=== PATIENT | male | born 1960 | race Caucasian/White ===

== ENCOUNTER 2018-03-02 10:52 | Day surgery (SDC) | payer BC ==
[~2018-03-02] VITALS: Ht 170.2 cm; Wt 92.0 kg
[2018-03-02] VITALS (196 sets, daily range): BP systolic 81–132; BP diastolic 48–97; PULSE 45–88; TEMP 97.6–98; O2SAT 76–100
[2018-03-02 12:13] LABS: HEMATOCRIT 43.2 % (42.0-52.0); HEMOGLOBIN 15.2 g/dl (13.5-18.0); MEAN CELL VOLUME 93 fl (80.0-100.0); MEAN CORPUSCULAR HEMOGLOBIN 33 pg (27.0-31.0); MEAN CORPUSCULAR HGB CONC 35 g/dl (33.0-37.0); MEAN PLATELET VOLUME 9.6 fl (7.4-10.4); PLATELET COUNT 172 K/mm3 (130-400); RED BLOOD COUNT 4.65 M/mm3 (4.20-5.60); REDCELL DISTRIBUTION WIDTH-CV 12.7 % (11.5-14.5)
[2018-03-02 12:16] LABS: PROTHROMBIN TIME 11.5 SECONDS (9.7-12.8)
[2018-03-02 12:24] LABS: CALCIUM 9.2 mg/dL (8.4-10.2); CREATININE, serum 0.81 mg/dL (0.66-1.25); POTASSIUM 4.4 mmol/L (3.4-5.0)
[2018-03-02] MEDS ORDERED: ASPIRIN E.C. 8181 MG PO (12:28)
[2018-03-02] MEDS ORDERED: VITAMIN D 1001000 IU (12:30)
[2018-03-02] MEDS ORDERED: THE MEDICINE S200 M2 PO (12:31)
[2018-03-02] MEDS ORDERED: ZETIA 10MG TAB10 MG PO (12:32)
[2018-03-02] MEDS ORDERED: LYRICA 75MG CAP75 MG PO (12:33)
[2018-03-02] MEDS ORDERED: TOPROL XL 25MG25 MG PO (12:33)
[2018-03-02] MEDS ORDERED: PRINZIDE 25 MG-1 TAB PO (12:33)
[2018-03-02] MEDS ORDERED: LIVALO4 MG PO (12:34)
[2018-03-03] VITALS (380 sets, daily range): BP systolic 103–121; BP diastolic 72–80; PULSE 48–51; TEMP 97.6–97.9; O2SAT 84–100
[2018-03-03 05:57] LABS: BASO % 0.6 % (0.0-2.0); EOS # 0.1 (0.0-0.7); EOS % 2.2 % (0-4.0); GRAN # 3.8 (1.4-6.5); GRAN % 58.5 % (42.2-75.2); HEMATOCRIT 41.3 % (42.0-52.0); HEMOGLOBIN 14.5 g/dl (13.5-18.0); LYMPH # 1.6 (1.2-3.4); LYMPH % 24.7 % (20.0-51.0); MEAN CELL VOLUME 94 fl (80.0-100.0); MEAN CORPUSCULAR HEMOGLOBIN 33 pg (27.0-31.0); MEAN CORPUSCULAR HGB CONC 35 g/dl (33.0-37.0); MEAN PLATELET VOLUME 9.7 fl (7.4-10.4); MONO # 0.9 (0.1-0.6); MONO % 13.4 % (1.7-9.3); PLATELET COUNT 176 K/mm3 (130-400); RED BLOOD COUNT 4.41 M/mm3 (4.20-5.60); REDCELL DISTRIBUTION WIDTH-CV 12.6 % (11.5-14.5)
[2018-03-03 06:22] LABS: CALCIUM 9.1 mg/dL (8.4-10.2); CREATININE, serum 0.9 mg/dL (0.66-1.25); POTASSIUM 4.5 mmol/L (3.4-5.0)
[2018-03-03] MEDS ORDERED: IMDUR 30MG30 MG/TAB PO (09:24)
[2018-03-03] MEDS ORDERED: BRILINTA90 MG PO (09:24)
[2018-03-03] MEDS ORDERED: LIPITOR 80MG80 MG PO (09:24)
[2018-03-03] MEDS ORDERED: PRINZIDE 12.5 M1 TAB PO (09:25)
== END 2018-03-03 11:55 | disposition home or self-care (01) ==
LOC: COL.CAR 10:52 → ICU 15:12 → COL.CAR 03-03 11:55
PROVIDERS: Internal Medicine Cardiovascular Disease; Nurse Practitioner
DX: I25.10 Atherosclerotic heart disease of native coronary artery without angina pectoris (principal); R06.09 Other forms of dyspnea; R07.9 Chest pain, unspecified; I10 Essential (primary) hypertension; E78.5 Hyperlipidemia, unspecified; G47.30 Sleep apnea, unspecified; R20.2 Paresthesia of skin; G89.29 Other chronic pain; M54.9 Dorsalgia, unspecified; I34.0 Nonrheumatic mitral (valve) insufficiency; Z79.82 Long term (current) use of aspirin; Z79.899 Other long term (current) drug therapy
CPT/HCPCS: OP; C9600; J0583; J2250; J3010; Q9967

== ENCOUNTER 2018-05-07 13:54 | Outpatient (RCR) | payer BC ==
[~2018-05-07 13:54] MED LIST: AMOXICILLIN 8751 TAB PO; ASPIRIN E.C. 8181 MG PO; BRILINTA90 MG PO; IMDUR 30MG30 MG/TAB PO; LIPITOR 80MG80 MG PO; LIVALO4 MG PO; LYRICA 75MG CAP75 MG PO; PRINZIDE 12.5 M1 TAB PO; PRINZIDE 25 MG-1 TAB PO; THE MEDICINE S200 M2 PO; TOPROL XL 25MG25 MG PO; VITAMIN D 1001000 IU; ZETIA 10MG TAB10 MG PO
== END 2018-06-24 | disposition home or self-care (01) ==
LOC: COL.CR
DX: Z48.812 Encounter for surgical aftercare following surgery on the circulatory system (principal); Z95.5 Presence of coronary angioplasty implant and graft

== ENCOUNTER 2018-08-05 17:00 | Outpatient (RCR) | payer BC ==
[2018-05-14 15:31] VITALS: BP 110/70; PULSE 80; TEMP 99.1
== END 2018-08-09 | disposition home or self-care (01) ==
LOC: WSPT
DX: G62.9 Polyneuropathy, unspecified (principal); Z98.1 Arthrodesis status; Z98.890 Other specified postprocedural states

== ENCOUNTER 2018-08-12 10:02 | Outpatient (RCR) | payer BC | END 2018-11-10 | disposition home or self-care (01) | LOC: WSPT | DX: G62.9 Polyneuropathy, unspecified (principal); Z98.1 Arthrodesis status ==

== ENCOUNTER → 2018-11-22 | Outpatient (CLI) | payer BC | LOC: COL.RAD 07:30 | DX: M75.122 Complete rotator cuff tear or rupture of left shoulder, not specified as traumatic (principal); M19.012 Primary osteoarthritis, left shoulder; Z96.9 Presence of functional implant, unspecified ==

== ENCOUNTER → 2019-08-15 | Outpatient (CLI) | payer BC | LOC: COL.RAD 11:58 | DX: M25.511 Pain in right shoulder (principal) ==

== ENCOUNTER 2020-02-06 10:02 | Day surgery (SDC) | payer BC ==
[~2020-02-06] VITALS: Ht 170.2 cm; Wt 90.0 kg
[~2020-02-06 10:02] MED LIST changes: +ASPIRIN 81M81 MG/TA2 PO; +PERCOCET 325 MG1 TA2 PO; +VITAMIN D250 MCG PO; +[UNRECOGNIZED DRUG - CODE] PO
[2020-02-06] MEDS ORDERED: ROXICODONE 55 MG/TAB PO (10:44)
[2020-02-06 11:02] VITALS: BP 115/66; PULSE 46; TEMP 97.8
[2020-02-06 12:36] VITALS: BP 98/66; PULSE 50; TEMP 97.4
--- NOTE | 2020-02-06 12:36 | NUR ---
Patient arrives back to [facility] alert, denies pain or nausea. Patient monitor applied, vitals stable. Patient has a large dressing on left forearm that is clean/dry/intact. Patient has no sensation in his left arm, capillary refill <2 seconds. Sling applied per surgical nurse.
[2020-02-06 12:45] VITALS: BP 100/72; PULSE 45
[2020-02-06 13:00] VITALS: BP 104/64; PULSE 41
--- NOTE | 2020-02-06 13:00 | NUR ---
Patient tolerates water and muffin without any nausea, denies pain, vitals stable.
[2020-02-06 13:15] VITALS: BP 97/56; PULSE 49
--- NOTE | 2020-02-06 13:15 | NUR ---
Oxygen therapy turned off at this time.
--- NOTE | 2020-02-06 13:25 | NUR ---
Patient up to restroom at this time.
--- NOTE | 2020-02-06 13:30 | NUR ---
Patient reports that he was able to urinate without any difficulties. Patient denies pain, and reports he is ready to go home.
--- NOTE | 2020-02-06 13:40 | NUR ---
Dismissal instructions gone over with patient and patient's spouse. Both verbalize understanding and all questions answered.
--- NOTE | 2020-02-06 13:50 | NUR ---
Patient discharged to private vehilce at patient enterance via wheelchair. Patient and spouse leave thanking staff for services.
== END 2020-02-06 13:50 | disposition home or self-care (01) ==
LOC: SDCO 10:02
DX: T79.A12A Traumatic compartment syndrome of left upper extremity, initial encounter (principal); W54.0XXA Bitten by dog, initial encounter; I25.2 Old myocardial infarction; I10 Essential (primary) hypertension; F17.220 Nicotine dependence, chewing tobacco, uncomplicated; Z98.1 Arthrodesis status; Z79.899 Other long term (current) drug therapy; Z88.5 Allergy status to narcotic agent; Z79.82 Long term (current) use of aspirin; Z95.5 Presence of coronary angioplasty implant and graft
CPT/HCPCS: A4565; J2250; J2704; J2795; J3010; J7120

== ENCOUNTER 2021-05-26 18:14 | Emergency (ER) | payer BC ==
[~2021-05-26] VITALS: Ht 170.2 cm; Wt 87.3 kg
[~2021-05-26 18:14] MED LIST changes: +ROXICODONE 55 MG/TAB PO
[2021-05-26] MEDS ORDERED: BACTRIM DS 8001 TAB PO (19:20)
[2021-05-26 19:28] VITALS: BP 118/67; PULSE 86; TEMP 98.6
== END 2021-05-26 19:28 | disposition home or self-care (01) ==
LOC: COL.ER 18:14
DX: M70.41 Prepatellar bursitis, right knee (principal)